=== PATIENT | male | born 1950 | race Caucasian/White ===

== ENCOUNTER 2018-04-05 15:14 | Emergency (ER) | payer OTHER ==
[2018-04-05 15:23] VITALS: BP 156/90
--- NOTE | 2018-04-05 16:03 | EDPHY ---
H & P Stated Complaint: shadowing to R eye peripheral visual field since 04/04 afternoon Time Seen by Provider: 04/05/18 15:47 HPI/ROS: CHIEF COMPLAINT: Visual changes HISTORY OF PRESENT ILLNESS: Patient is a 67-year-old man who comes to the emergency department complaining of some the cloudy or smoky vision in his right eye. He states that it seems like a vertical light on the periphery of his right eye. He 1st noticed it yesterday. It is not worsened. No pain or discharge. No trauma. He does not have history of diabetes. No focal weakness or deficits. No vision loss. He states that his visual acuity is normal but it is distracting. Severity: Moderate Modifying factors: None REVIEW OF SYSTEMS: Constitutional: denies: chills, fever, recent illness, recent injury EENTM: denies: blurred vision, double vision, nose congestion Respiratory: denies: cough, shortness of breath Cardiac: denies: chest pain, irregular heart rate, lightheadedness, palpitations Gastrointestinal/Abdominal: denies: abdominal pain, diarrhea, nausea, vomiting, blood streaked stools Genitourinary: denies: dysuria, frequency, hematuria, pain Musculoskeletal: denies: joint pain, muscle pain Skin: denies: lesions, rash, jaundice, bruising Neurological: denies: headache, numbness, paresthesia, tingling, dizziness, weakness Hematologic/Lymphatic: denies: blood clots, easy bleeding, easy bruising Immunologic/allergic: denies: HIV/AIDS, transplant 10 systems reviewed and negative except as noted EXAM: GENERAL: Well-appearing, well-nourished and in no acute distress. HEAD: Atraumatic, normocephalic. EYES: Pupils equal round and reactive to light, extraocular movements intact, sclera anicteric, conjunctiva are normal. Pressure med showered with [id number] at 14. Retina visualized with no obvious detachment or hemorrhage or ischemic changes. Ultrasound used, small higher density object visualized in the vitreous consistent with a hemorrhage or small detachment. ENT: TMs normal, nares patent, oropharynx clear without exudates. Moist mucous membranes. NECK: Normal range of motion, supple without lymphadenopathy or JVD. LUNGS: Breath sounds clear to auscultation bilaterally and equal. No wheezes rales or rhonchi. HEART: Regular rate and rhythm without murmurs, rubs or gallops. ABDOMEN: Soft, nontender, normoactive bowel sounds. No guarding, no rebound. No masses appreciated. BACK: No CVA tenderness, no spinal tenderness, step-offs or deformities EXTREMITIES: Normal range of motion, no pitting or edema. No clubbing or cyanosis. NEUROLOGICAL: Cranial nerves II through XII grossly intact. Normal speech, normal gait. 5/5 strength, normal movement in all extremities, normal sensation , normal reflexes PSYCH: Normal mood, normal affect. SKIN: Warm, dry, normal turgor, no visible rashes or lesions. Source: Patient Exam Limitations: No limitations - Medical/Surgical History Hx Asthma: No Hx Chronic Respiratory Disease: No Hx Diabetes: No Hx Cardiac Disease: No Hx Renal Disease: No Hx Cirrhosis: No Hx Alcoholism: No Hx HIV/AIDS: No Hx Splenectomy or Spleen Trauma: No Other PMH: hyperlipidemia - Family History Significant Family History: No pertinent family hx - Social History Smoking Status: Never smoked Alcohol Use: Sober Drug Use: None Constitutional: Initial Vital Signs Temperature (C) 36.7 C 04/05/18 15:20 Heart Rate 88 04/05/18 15:20 Respiratory Rate 16 04/05/18 15:20 Blood Pressure 156/90 H 04/05/18 15:20 O2 Sat (%) 98 04/05/18 15:20 O2 Delivery Mode Room Air Allergies/Adverse Reactions: shellfish derived Allergy (Verified 09/30/15 01:54) Home Medications: Medication Instructions Recorded Aspirin EC 81 mg (*) 04/05/18 Atorvastatin Calcium 04/05/18 Medical Decision Making ED Course/Re-evaluation: Patient appears clinically to have either vitreous detachment verses vitreal hemorrhage. He is in no acute distress. I will have him follow up with Ophthalmology however the patient states that he will be out of town from Sunday to of next week. I have placed a paged Ophthalmology to attempt to arrange follow-up. 4:05 p.m. I spoke with Dr. Lopez who recommended we send the patient directly to their office to considered for laser. He did ask if we can give him some my dilator prior to discharge unless it takes too long. We would have to get up from pharmacy so we decided to let him just go. Differential Diagnosis: Partial list of the Differential diagnosis considered include but were not limited to; vitreous detachment, vitreous hemorrhage, retinal detachment, amaurosis fugax and although unlikely based on the history and physical exam, I also considered iritis, trauma, corneal abrasion, intracranial hemorrhage. I discussed these differential diagnoses and the plan with the patient as well as the usual and expected course. The patient understands that the diagnosis is provisional and that in medicine we are not always correct and that further workup is often warranted. Usual and customary warnings were given. All of the patient's questions were answered. The patient was instructed to return to the emergency department should the symptoms at all worsen or return, otherwise to followup with the physician as we discussed. Departure - Departure Disposition: Home, Routine, Self-Care Clinical Impression: Vitreal detachment Condition: Good Instructions: Blurred Vision (ED) Additional Instructions: Go directly to the doctor Lopez office [address] He will see you now. Referrals: Piter Singh MD [Primary Care Provider] - As per Instructions Linda Wilkins MD [Medical Doctor] - 1 day without fail (Dr. Lopez)
[2018-04-05] MEDS ORDERED: ATROPINE 1% 5 ML OPHT.BTL RTEYE SCH (21:00)
== END 2018-04-05 16:15 | disposition home or self-care (01) ==
DX: H43.811 Vitreous degeneration, right eye (principal)